=== PATIENT | male | born 1945 | race Caucasian/White ===

== ENCOUNTER → 2016-11-01 | Outpatient (CLI) | payer MEDICARE ==
[~2016-11-01] MED LIST: ALL DAY ALLERGY10 M3 PO; ALPRAZOLAM0.5 MG PO; ASPIRIN CHEWABL81 MG PO; CYMBALTA30 MG PO; ELIQUIS 2.5 MG2.5 MG PO; FLOMAX 0.4 MG0.4 MG PO; HYDRALAZINE HCL25 MG PO; LOSARTAN POTAS100 MG PO; OMEPRAZOLE20 M1 PO; PLAQUENIL 200200 MG PO; PLAVIX 75 MG TA75 MG PO; SOTALOL80 MG PO; TYLENOL 325MG325 MG PO; VITAMIN B-121000 MCG PO
== END ==
LOC: KOH-I 16:14
DX: R59.0 Localized enlarged lymph nodes (principal); R93.8 Abnormal findings on diagnostic imaging of other specified body structures
CPT/HCPCS: 76536

== ENCOUNTER → 2016-11-22 | Outpatient (CLI) | payer MEDICARE | LOC: US 11-14 09:30 | DX: D37.030 Neoplasm of uncertain behavior of the parotid salivary glands (principal) | CPT/HCPCS: 10022; 76536 ==

== ENCOUNTER → 2017-05-19 | Day surgery (SDC) | payer MEDICARE ==
[~2017-05-19] VITALS: Ht 177.8 cm; Wt 85.7 kg
== END | disposition home or self-care (01) ==
LOC: OR 07:45
PROVIDERS: Orthopaedic Surgery
PROC: 0JCD0ZZ Extirpation of Matter from Right Upper Arm Subcutaneous Tissue and Fascia, Open Approach (ICD-10-PCS; principal; 2017-05-19 10:30)
DX: M79.5 Residual foreign body in soft tissue (principal); I25.10 Atherosclerotic heart disease of native coronary artery without angina pectoris; I10 Essential (primary) hypertension; K21.9 Gastro-esophageal reflux disease without esophagitis; J44.9 Chronic obstructive pulmonary disease, unspecified; E78.5 Hyperlipidemia, unspecified; I48.91 Unspecified atrial fibrillation; N40.0 Benign prostatic hyperplasia without lower urinary tract symptoms; M19.90 Unspecified osteoarthritis, unspecified site; F17.210 Nicotine dependence, cigarettes, uncomplicated; Z86.73 Personal history of transient ischemic attack (TIA), and cerebral infarction without residual deficits; Z88.8 Allergy status to other drugs, medicaments and biological substances; Z79.01 Long term (current) use of anticoagulants; Z79.82 Long term (current) use of aspirin; Z79.02 Long term (current) use of antithrombotics/antiplatelets; Z79.899 Other long term (current) drug therapy; Z95.0 Presence of cardiac pacemaker; Z95.2 Presence of prosthetic heart valve
CPT/HCPCS: J0690; J3010; J7120

== ENCOUNTER → 2020-10-21 | Outpatient (CLI) | payer MEDICARE | LOC: LAB 09:19 | DX: I42.8 Other cardiomyopathies (principal); I10 Essential (primary) hypertension; R09.02 Hypoxemia; R06.02 Shortness of breath; R53.83 Other fatigue; R91.8 Other nonspecific abnormal finding of lung field; J98.11 Atelectasis; Z95.0 Presence of cardiac pacemaker | CPT/HCPCS: 36415; 71046; 83880 ==

== ENCOUNTER 2021-09-30 17:19 | Emergency (ER) | payer MEDICARE ==
[2021-09-30 17:41] LABS: HEMOGLOBIN 14.2 gm/dl (14.0-17.5); RED BLOOD COUNT 5.54 M/UL (4.20-5.50); WHITE BLOOD COUNT 9.8 K/UL (4.5-11.0)
[2021-09-30 18:01] LABS: BUN/CREATININE RATIO 20 (0-10)
[2021-09-30] MEDS ORDERED: CEFUROXIME500 MG PO (22:39)
== END 2021-09-30 23:25 | disposition home or self-care (01) ==
LOC: ER1 17:19
PROVIDERS: Physician Assistant
DX: N41.9 Inflammatory disease of prostate, unspecified (principal)
CPT/HCPCS: 80053; 81001; 85025; 96374; 99284; J0696

== ENCOUNTER 2021-12-01 20:13 | Emergency (ER) | payer MEDICARE ==
[~2021-12-01 20:13] MED LIST changes: +CEFUROXIME500 MG PO
[2021-12-01 20:55] LABS: HEMOGLOBIN 13.8 gm/dl (14.0-17.5); RED BLOOD COUNT 5.43 M/UL (4.20-5.50)
[2021-12-01 21:22] LABS: BUN/CREATININE RATIO 19 (0-10)
[2021-12-01] MEDS ORDERED: PROTONIX40 MG PO (21:58)
== END 2021-12-01 22:30 | disposition home or self-care (01) ==
LOC: ER1 20:13
PROVIDERS: Preventive Medicine Occupational Medicine
DX: K57.90 Diverticulosis of intestine, part unspecified, without perforation or abscess without bleeding (principal); I25.10 Atherosclerotic heart disease of native coronary artery without angina pectoris
CPT/HCPCS: 80053; 83690; 85025; 85652; 86140; 96374; 96375; 99284; C9113; J2405; Q9967

== ENCOUNTER 2021-12-07 14:12 | Observation (INO) | payer MEDICARE ==
[~2021-12-07] VITALS: Ht 177.8 cm; Wt 95.0 kg
[~2021-12-07 14:12] MED LIST changes: +PROTONIX40 MG PO
[2021-12-07 15:25] LABS: HEMOGLOBIN 12.9 gm/dl (14.0-17.5); RED BLOOD COUNT 5.1 M/UL (4.20-5.50); WHITE BLOOD COUNT 11.2 K/UL (4.5-11.0)
[2021-12-08 03:26] LABS: HEMOGLOBIN 13.2 gm/dl (14.0-17.5); RED BLOOD COUNT 5.29 M/UL (4.20-5.50); WHITE BLOOD COUNT 10.9 K/UL (4.5-11.0)
[2021-12-08] MEDS ORDERED: PROTONIX40 MG PO (09:20)
[2021-12-08] MEDS ORDERED: BUMETANIDE1 MG PO (09:20)
[2021-12-08] MEDS ORDERED: K-TAB ER20 MEQ PO (09:20)
[2021-12-09 11:16] LABS: KPC-CARBAPENEM-RESISTANCE GENE Not Detected (Negative); STAPHYLOCOCCUS AUREUS Not Detected (Negative); STREP AGALACTIAE (GROUP B) Not Detected (Negative); STREP PYOGENES (GROUP A) Not Detected (Negative); STREPTOCOCCUS Not Detected (Negative); vanA/B (VANCOMYCIN RESIST GENE Not Detected (Negative)
[2021-12-09 11:17] LABS: CANDIDA ALBICANS Not Detected (Negative); CANDIDA KRUSEI Not Detected (Negative); CANDIDA TROPICALIS Not Detected (Negative); ESCHERICHIA COLI Not Detected (Negative); HAEMOPHILUS INFLUENZAE Not Detected (Negative); KLEBSIELLA OXYTOCA Not Detected (Negative); KLEBSIELLA PNEUMONIAE Not Detected (Negative); PROTEUS Not Detected (Negative); PSEUDOMONAS AERUGINOSA Not Detected (Negative); SERRATIA MARCESANS Not Detected (Negative)
[2021-12-09 14:08] LABS: STAPHYLOCOCCUS DETECTED (Negative)
== END 2021-12-08 12:00 | disposition home or self-care (01) ==
LOC: ER1 14:12 → M/S 17:11 → CDU 17:11 → M/S 22:10
PROVIDERS: Emergency Medicine; Physician Assistant; ADMIT Internal Medicine
DX: I11.0 Hypertensive heart disease with heart failure (principal); I50.9 Heart failure, unspecified; J96.11 Chronic respiratory failure with hypoxia; I48.0 Paroxysmal atrial fibrillation; I25.10 Atherosclerotic heart disease of native coronary artery without angina pectoris; J44.9 Chronic obstructive pulmonary disease, unspecified; E78.5 Hyperlipidemia, unspecified; F03.90 Unspecified dementia, unspecified severity, without behavioral disturbance, psychotic disturbance, mood disturbance, and anxiety; N40.0 Benign prostatic hyperplasia without lower urinary tract symptoms; F17.200 Nicotine dependence, unspecified, uncomplicated; Z66 Do not resuscitate; Z99.81 Dependence on supplemental oxygen; Z95.0 Presence of cardiac pacemaker; Z95.1 Presence of aortocoronary bypass graft; Z79.01 Long term (current) use of anticoagulants; Z86.73 Personal history of transient ischemic attack (TIA), and cerebral infarction without residual deficits; Z20.822 Contact with and (suspected) exposure to COVID-19; Z91.14 Patient's other noncompliance with medication regimen; Z88.8 Allergy status to other drugs, medicaments and biological substances
CPT/HCPCS: ECHO; 0240U; 36600; 71045; 80053; 81001; 82550; 82553; 82803; 83735; 83880; 84484; 85025; 87040; 87150; 93005; 93306; 96374; 96375; 99285; G0378; J0610; J0696; J1940

== ENCOUNTER → 2021-12-27 | Outpatient (CLI) | payer MEDICARE ==
[~2021-12-27] MED LIST changes: +BUMETANIDE1 MG PO; +K-TAB ER20 MEQ PO
== END ==
LOC: EXRD 14:53
DX: I50.30 Unspecified diastolic (congestive) heart failure (principal)
CPT/HCPCS: 71046